=== PATIENT | female | born 1985 | race Caucasian/White ===

== ENCOUNTER → 2020-11-22 14:36 | Outpatient (CLI) | payer OTHER, SELFPAY ==
[2020-11-22 16:26] LABS: COVID19 -Nasal RAPID Negative (Negative)
== END ==
PROVIDERS: PCP Specialist; Visit Provider Specialist
DX: Z01.812 Encounter for preprocedural laboratory examination (principal); Z20.822 Contact with and (suspected) exposure to COVID-19
CPT/HCPCS: 87635

== ENCOUNTER 2020-11-23 09:53 | Day surgery (SDC) | payer OTHER, SELFPAY ==
[2020-11-21 12:23] VITALS: BMI 23.1
[2020-11-23] VITALS (7 sets, daily range): BP systolic 120–125; BP diastolic 62–85; PULSE 65–91; RESP 12–16; TEMP 36.3–36.6; O2SAT 99–100; BMI 23.1
--- NOTE | 2020-11-23 | PATH_ITS ---
[facility] Accession Number: [id number] . 01 Material submitted: . PART A: cervix - CERVIX AT 12 O'CLOCK PART B: cervix - CERVIX AT 6 O'CLOCK PART C: cervix - CERVIX DEEP PART D: endocervix - ENDOCERVICAL CURETTINGS . 01 Diagnosis: A. Uterine Cervix, 12 o'clock, LEEP Excision: Transformation zone mucosa with high-grade squamous intraepithelial lesion (HSIL, CURTIS 2-3/moderate to severe dysplasia), undermining endocervical epithelium. See comment for inked/cauterized tissue edges status. Negative for glandular dysplasia and invasive malignancy. . B. Uterine Cervix, 6 o'clock, LEEP Excision: Transformation zone mucosa with focal high-grade squamous intraepithelial lesion (HSIL, CURTIS-2/moderate dysplasia), undermining endocervical epithelium. HSIL appears free from all inked/cauterized tissue edges. Negative for glandular dysplasia and invasive malignancy. . C. Uterine Cervix, Deep, LEEP Excision: Inflamed benign endocervical mucosa/tissue. Negative for dysplasia and malignancy. . D. Endocervix, Curettage: Detached strip of dysplastic squamous epithelium, consistent with low-grade squamous intraepithelial lesion (CURTIS-1/mild dysplasia). No definitive evidence of high-grade squamous intraepithelial lesion. Detached fragments of benign endocervical epithelium/mucosa. Few fragments and strips of benign endometrium. . COMMENT: In part A, the LEEP excision at 12 o'clock, and specifically in one fragment in block A4 that is difficult to orient, HSIL appears free but very close (<0.55 mm) to one inked/cauterized tissue edge. This close edge is favored to represent an ectocervical tissue edge, but it is not definitively so. The definite inked/cauterized endocervical and deep tissue edges appear free of HSIL. Given that the specimen is received in several parts, clinical correlation is necessary to determine whether these close edges represent true margins. [facility] 11/29/2020 1000 Local . 01 Electronically signed: . Filomena Forman MD, Pathologist NPI- [id number] . 01 Gross description: . A. The specimen is received in formalin, labeled cervix at 12 o'clock, and consists of a 2.6 x 1.5 cm montgomery-pink portion of ectocervix excised to a depth of 0.2 cm. The margin is inked blue. The specimen is serially sectioned and entirely submitted in cassettes A1-A4. B. The specimen is received in formalin, labeled cervix at 6 o'clock, and consists of a 1.5 x 0.9 cm montgomery-pink portion of ectocervix excised to a depth of 0.2 cm. The margin is inked blue. The specimen is serially sectioned and entirely submitted in cassettes B1-B2. C. The specimen is received in formalin, labeled cervix deep, and consists of a 1.5 x 1.5 x 0.6 cm montgomery portion of cervix. The margin is inked blue. The specimen is serially sectioned and entirely submitted in cassettes C1-C3. D. The specimen is received in formalin, labeled endocervical curettage, and consists of multiple montgomery-pink fragments of soft tissue admixed with mucus and clotted blood measuring 2.5 x 2.0 x 0.3 cm in aggregate. The specimen is filtered and entirely submitted in cassette D1. ([id number]) /[facility] 11/24/2020 [facility] Local . 01 Microscopic: . P16 and Ki-67 immunostains are performed on block D1 in order to evaluate a minute tangentially sectioned strip of dysplastic squamous epithelium within the ECC, with appropriately staining external controls. The area of interest demonstrates no overexpression of p16, and does not appear to show elevation of Ki-67, in support of the diagnosis. . * This test was developed and its performance characteristics determined by [employer]. It has not been cleared or approved by the [place]. Food and Drug Administration. The FDA has determined that such clearance or approval is not necessary. This test is used for clinical purposes. It should not be regarded as investigational or for research. . 01 Pathologist provided ICD-10: N87.1, D06.1 . 01 CPT . 959955, 334082, 920093, 274051, L16773, [id number] Performed at: 01 [facility] [address] [place] [address], [place], [place] [id number] MD Ru Chau MD Phone: [phone]
[2020-11-23] MEDS: LACTATED RINGERS 1,000 ML 100 ML IV (10:08)
--- NOTE | 2020-11-23 12:41 | PM.PREOP ---
Pre-operative Note COVID-19 COVID-19 status: Negative Result date/Date tested (Pos, Neg/Pending): 11/22/20 Interval Note History & Physical reviewed/Exam performed by Physician: Yes Changes to H&P: No
--- NOTE | 2020-11-23 13:35 | SUR.OPER ---
Lithotomy on padded OR bed, head on pillow, arms secured on padded arm boards at <90 degrees abduction. Legs secured in padded yellow fins stirrups.
--- NOTE | 2020-11-23 13:40 | P.OP_ITS ---
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 Lugol's nonstaining area at 12:00 p.m. Closure Type: not applicable Specimen(s): other (12:00 p.m. squamocolumnar junction, 6:00 a.m. squamocolumnar junction, deep biopsy of endocervical canal and ECC) Estimated Blood Loss (mL): 1 Blood products transfused: none Procedure in detail: Patient was brought to the operating room where she underwent general anesthesia. She is placed in low Yellofin stirrups and draped. The cervix was stained with Lugol's. The cervix was injected with approximately 15 cc 0.5% Marcaine with epinephrine. The LEEP set at 80 w of cutting was used to remove the squamocolumnar junction from 9-3 o'clock including the 12:00 p.m. area. The remainder of the squamocolumnar junction was removed. A deep LEEP was performed. ECC was performed. Bleeding was stopped with the ball cautery set at 30 w. The external area to the LEEP was treated with the ball cautery. Monsel's was placed. Patient went to recovery room in good condition. Complications: none Post-operative Condition: stable Disposition: same day surgery Plan for aftercare: Treatment and follow-up will be based on biopsy results.
[2020-11-23] MEDS: BUPIVACAINE 0.5% (PF) VIAL 30 ML INJ (13:47)
[2020-11-23] MEDS: FERRIC SUBSULFATE 8 GM SOLUTION 8 ML TOP (13:50)
== END 2020-11-23 14:30 | disposition home or self-care (01) ==
PROVIDERS: PCP Specialist; Referring Provider Specialist; Visit Provider Specialist
PROC: 0UBC7ZZ Excision of Cervix, Via Natural or Artificial Opening (ICD-10-PCS; CPT 57522; principal; 2020-11-23 10:45)
DX: D06.0 Carcinoma in situ of endocervix (principal)
CPT/HCPCS: 57522; 81025; A9270; J1100; J1885; J2250; J2405; J2704; J3010